=== PATIENT | male | born 1960 | race Caucasian/White ===

== ENCOUNTER → 2019-12-05 13:12 | Outpatient (BNVA) | payer BC, SELFPAY | PROVIDERS: PCP Nurse Practitioner Family; Visit Provider Nurse Practitioner Family | DX: I10 Essential (primary) hypertension (principal); Z12.5 Encounter for screening for malignant neoplasm of prostate; Z00.00 Encounter for general adult medical examination without abnormal findings | CPT/HCPCS: 80053; 80061; 85025; G0103 ==

== ENCOUNTER → 2019-12-07 12:15 | Outpatient (BNVA) | payer BC, SELFPAY | PROVIDERS: PCP Nurse Practitioner Family; Visit Provider Nurse Practitioner Family | DX: Z11.59 Encounter for screening for other viral diseases (principal) | CPT/HCPCS: 87635 ==

== ENCOUNTER → 2019-12-13 11:18 | Outpatient (BNVA) | payer BC, SELFPAY | PROVIDERS: PCP Nurse Practitioner Family; Visit Provider Nurse Practitioner Family | DX: Z11.59 Encounter for screening for other viral diseases (principal) | CPT/HCPCS: 87635 ==

== ENCOUNTER → 2021-04-22 13:21 | Outpatient (BNVA) | payer BC, SELFPAY | PROVIDERS: PCP Nurse Practitioner Family; Visit Provider Nurse Practitioner Family | DX: R05.9 Cough, unspecified (principal); Z20.822 Contact with and (suspected) exposure to COVID-19 | CPT/HCPCS: 87635 ==

== ENCOUNTER → 2022-08-18 11:45 | Outpatient (BNVA) | payer BC, SELFPAY | PROVIDERS: PCP Nurse Practitioner Family; Visit Provider Nurse Practitioner Family | DX: I10 Essential (primary) hypertension (principal); Z12.5 Encounter for screening for malignant neoplasm of prostate | CPT/HCPCS: 80053; 80061; 82607; 83735; 84443; 85025; G0103 ==

== ENCOUNTER 2022-09-01 09:57 | Outpatient (CLI) | payer BC, SELFPAY ==
--- NOTE | 2022-09-01 10:00 | CT_ITS ---
WS: [id number] LDCT LUNG CANCER SCREENING HISTORY: F17.200 - Nicotine dependence, unspecified, uncomplicated TECHNIQUE: Axial imaging performed from the apices to 1 cm below the costophrenic angles. Coronal and sagittal reformats are submitted with axial MIP series. All CT scans at [facility] use at least one of these dose optimization techniques: automated exposure control; mA and/or kV adjustment per patient size (includes targeted exams where dose is matched to clinical indication); or iterativ e reconstruction. DLP: 65.50 mGy.cm DIvol: Mean CTDIvol: 1.20 (mGy) COMPARISON: Chest CT 03/07/2015 Diagnostic quality: Satisfactory Lungs: Centrilobular and paraseptal emphysema. No pulmonary mass or nodule. No pneumonia. No endobron chial lesions. Heart: Normal size heart with no pericardial effusion.. Mild scattered coronary artery calcifications . Other findings: Mild atherosclerosis aorta. Benign mediastinal and hilar lymph nodes. Some these lymp h nodes are calcified. Mild thickening LEFT adrenal gland similar to the prior study from 2014. Splen ic granulomata. No destructive bone lesions. CT/CT lung screening [id number] IMPRESSION: LUNG-RADS: 1-Negative FOLLOW UP: 12 Month: Continue annual screening with LDCT OTHER FINDINGS (S MODIFIER): None.
== END 2022-09-01 09:58 | disposition home or self-care (01) ==
PROVIDERS: PCP Nurse Practitioner Family; Visit Provider Nurse Practitioner Family
DX: Z13.83 Encounter for screening for respiratory disorder NEC (principal); F17.200 Nicotine dependence, unspecified, uncomplicated
CPT/HCPCS: 71271

== ENCOUNTER 2023-11-21 15:05 | Outpatient (CLI) | payer BC, SELFPAY ==
--- NOTE | 2023-11-21 15:15 | CT_ITS ---
WS: [id number] LDCT LUNG CANCER SCREENING TECHNIQUE: Noncontrast CT of the chest with coronal and sagittal reformatted images. CLINICAL INFORMATION: F17.200 - Nicotine dependence, unspecified, uncomplicated COMPARISON: CT 09/01/2022 DLP: 66.69 mGy.cm DIvol: Mean CTDIvol: 1.30 (mGy) All CT scans at [facility] use at least one of these dose optimization techniques: automat ed exposure control; mA and/or kV adjustment per patient size (includes targeted exams where dose is matched to clinical indication); or iterative reconstruction. FINDINGS: Moderate chronic emphysematous change. No acute pulmonary infiltrates. Calcified mediastinal and calc ified RIGHT hilar lymph nodes. No axillary lymphadenopathy. Few calcified granulomas. No new suspicio us pulmonary parenchymal abnormalities. Mild aortic calcification. Coronary calcification. No mediastinal or hilar lymphadenopathy. Mild thic kening LEFT adrenal gland unchanged. Splenic granulomas. Mild thoracic kyphosis. Hypertrophic changes thoracic spine. CT/CT lung screening [id number] IMPRESSION: LUNG-RADS: 1-Negative FOLLOW UP: 12 Month: Continue annual screening with LDCT
== END 2023-11-21 15:06 | disposition home or self-care (01) ==
LOC: RAD 15:06
PROVIDERS: PCP Nurse Practitioner Family; Visit Provider Nurse Practitioner Family
DX: I10 Essential (primary) hypertension (principal); F17.200 Nicotine dependence, unspecified, uncomplicated; Z12.5 Encounter for screening for malignant neoplasm of prostate; I25.10 Atherosclerotic heart disease of native coronary artery without angina pectoris; R91.8 Other nonspecific abnormal finding of lung field
CPT/HCPCS: 71271; 80053; 84443; 85025; G0103

== ENCOUNTER → 2024-12-26 08:28 | Outpatient (BNVA) | payer BC, SELFPAY | PROVIDERS: PCP Nurse Practitioner Family; Visit Provider Nurse Practitioner Family | DX: I10 Essential (primary) hypertension (principal); Z12.5 Encounter for screening for malignant neoplasm of prostate | CPT/HCPCS: 80053; 80061; 84443; 85025; G0103 ==

== ENCOUNTER 2025-01-01 16:58 | Outpatient (CLI) | payer BC, SELFPAY ==
--- NOTE | 2025-01-01 17:00 | CT_ITS ---
WS: [id number] LOW DOSE CT LUNG SCREENING 01/01/2025. HISTORY: Significant smoking history TECHNIQUE: Multiple low-dose axial images with sagittal and coronal reconstructions. COMPARISON EXAMINATION: 11/21/2023. FINDINGS: The examination is unchanged compared to the previous study. Central lobar emphysema and subpleural bullous disease. No lung nodule or lung mass. No lung, hilar, or mediastinal mass or adenopathy. Mild to moderate degenerative spondylosis of the thoracic spine without focal vertebral body lesion. CT/CT lung screening [id number] IMPRESSION: L RADS 1. Follow-up 1 year.
== END 2025-01-01 16:59 | disposition home or self-care (01) ==
LOC: RAD 16:58
PROVIDERS: PCP Nurse Practitioner Family; Visit Provider Nurse Practitioner Family
DX: Z12.2 Encounter for screening for malignant neoplasm of respiratory organs (principal); F17.200 Nicotine dependence, unspecified, uncomplicated; J43.9 Emphysema, unspecified; M47.814 Spondylosis without myelopathy or radiculopathy, thoracic region
CPT/HCPCS: 71271

== ENCOUNTER → 2025-01-08 08:39 | Outpatient (BNVA) | payer BC, SELFPAY | PROVIDERS: PCP Nurse Practitioner Family; Visit Provider Nurse Practitioner Family | DX: F17.210 Nicotine dependence, cigarettes, uncomplicated (principal) | CPT/HCPCS: 80048; 85025 ==